=== PATIENT | male | born 1975 | race Caucasian/White ===

== ENCOUNTER 2016-09-07 09:20 | Emergency (ER) | payer OTHER ==
[~2016-09-07] VITALS: Ht 175.3 cm; Wt 77.0 kg
[2016-09-07] MEDS ORDERED: METOCLOPRAMIDE INJ 10MG/2ML VIAL (J2765) IV ONE (10:00)
[2016-09-07] MEDS ORDERED: MORPHINE 4 MG/ML 1ML SYRINGE IV PRN (10:00)
[2016-09-07] MEDS ORDERED: NS 1,000 ML IV ONE (10:30)
[2016-09-07 10:39] LABS: BASO % 0.5 % (0.0-1.0); EOS # 0.1 K/mm3 (0.0-0.50); EOS % 1.2 % (0.0-3.0); LARGE UNSTAINED CELL # 0.1 K/mm3 (0.0-0.4); LYMPH # 1.4 K/mm3 (1.5-4.5); LYMPH % 24.2 % (24.0-44.0); MEAN CORPUSCULAR HEMOGLOBIN 30.6 pg (27.0-33.0); MEAN CORPUSCULAR VOLUME 87.4 fl (80.0-96.0); MONO # 0.4 K/mm3 (0.0-0.8); MONO % 6.6 % (0.0-5.0); NEUTROPHILS # 3.7 K/mm3 (1.8-7.7); NEUTROPHILS % 65.6 % (36.0-66.0); PLATELET COUNT, AUTOMATED 223 k/mm3 (150-450); RED CELL DISTRIBUTION WIDTH 12.5 % (11.5-14.5); WHITE BLOOD COUNT 5.6 K/mm3 (4.0-10.0)
[2016-09-07 10:47] LABS: ALBUMIN 4.4 GM/DL (3.2-5.2); ALBUMIN/GLOBULIN RATIO 1.33 (1.00-1.93); ALKALINE PHOSPHATASE 45 U/L (45-117); ALT/SGPT 28 U/L (12-78); ANION GAP 4 MEQ/L (8-16); AST/SGOT 13 U/L (15-37); BILIRUBIN,DIRECT 0.2 MG/DL (0.0-0.2); BILIRUBIN,TOTAL 0.9 MG/DL (0.2-1.0); BLOOD UREA NITROGEN 19 MG/DL (7-18); CALCIUM LEVEL 9.3 MG/DL (8.5-10.1); CARBON DIOXIDE LEVEL 32 MEQ/L (21-32); CHLORIDE LEVEL 104 MEQ/L (98-107); CREATININE FOR GFR 1.17 MG/DL (0.70-1.30); GLOMERULAR FILTRATION RATE > 60.0 (>60); GLUCOSE, FASTING 92 MG/DL (70-105); POTASSIUM SERUM 4.2 MEQ/L (3.5-5.1); SODIUM LEVEL 140 MEQ/L (136-145); TOTAL PROTEIN 7.7 GM/DL (6.4-8.2)
--- NOTE | 2016-09-07 14:03 | REP ---
CT abdomen pelvis without IV or bowel contrast: There are no comparison studies. The visualized lung العلي are unremarkable except for dependent atelectasis. The unenhanced hepatic parenchyma is homogeneous. The gallbladder, pancreas and spleen are unremarkable. The adrenals and unenhanced kidneys are unremarkable. The abdominal aorta is unremarkable. There is no bowel distension or obstruction. There are surgical karen adjacent to bowel loops in the right lower quadrant. The patient indicates he has had an appendectomy. Pelvis: There is no ascites or adenopathy. There are metallic densities interposed between the posterior wall of the bladder and the seminal vesicles of uncertain significance, possibly from biopsy. Impression: There is no bowel distension or obstruction. There is no ascites, adenopathy or mass. There are surgical clips in the right lower quadrant, likely from the patients known appendectomy. There are metallic densities interposed between the posterior bladder wall and seminal vesicles of uncertain significance, possibly from biopsy. Signed by Ronny Hightower MD 09/07/2016 01:55 P
[2016-09-07 14:33] VITALS: BP 132/82
[2016-09-07] MEDS ORDERED: REGL10TA6 PO (14:40)
[2016-09-07] MEDS ORDERED: CIPR-249 PO (14:42)
[2016-09-07] MEDS ORDERED: NORC1TAB4 PO (14:42)
[2016-09-07] MEDS ORDERED: FLAG500T PO (14:43)
[2016-12-02] MEDS ORDERED: MULTTAB50 PO (07:59)
[2016-12-02] MEDS ORDERED: FLON1SPR (07:59)
== END 2016-09-07 14:53 | disposition home or self-care (01) ==
LOC: M ED 09:20
DX: K52.9 Noninfective gastroenteritis and colitis, unspecified (principal)
CPT/HCPCS: 74176; 80048; 80076; 83690; 85025; 86850; 86900; 86901; 87507; 93041; 96361; 96374; 96375; 99285; J2765

== ENCOUNTER 2016-12-09 07:20 | Day surgery (SDC) | payer OTHER ==
[~2016-12-09] VITALS: Ht 175.3 cm; Wt 72.6 kg
[~2016-12-09 07:20] MED LIST: CIPR-249 PO; FLAG500T PO; FLON1SPR; MULTTAB50 PO; NORC1TAB4 PO; REGL10TA6 PO
[2016-12-09] MEDS ORDERED: NS 1,000 ML IV SCH (07:30)
[2016-12-09] MEDS ORDERED: LIDOCAINE 2% INJ 100 MG/5 ML SDV (FOR ANES.) As Ordered ONE (08:32)
[2016-12-09] MEDS ORDERED: PROPOFOL 200 MG/20 ML VIAL As Ordered ONE ×2 (08:32→08:41)
--- NOTE | 2016-12-09 08:52 | ROOR ---
Patient Name: Farhan Alfaro Procedure Date: 12/09/2016 8:29 AM Date of : 1975 Age: 41 Room: [facility] Gender: Male Note Status: Finalized Procedure: Colonoscopy Indications: Screening in patient at increased risk: Family history of 1st-degree relative with colorectal cancer before age 60 years Providers: DO Pepito Perez MD: ALEXIA MITCHELL MD Requesting Provider: Medicines: Propofol per Anesthesia Complications: No immediate complications. Procedure: Pre-Anesthesia Assessment: - Prior to the procedure, a History and Physical was performed, and patient medications and allergies were reviewed. The patient is competent. The risks and benefits of the procedure and the sedation options and risks were discussed with the patient. All questions were answered and informed consent was obtained. Patient identification and proposed procedure were verified by the physician, the nurse, the anesthesiologist and the [employer] service technician in the endoscopy suite. Mental Status Examination: alert and oriented. Airway Examination: normal oropharyngeal airway and neck mobility. Respiratory Examination: clear to auscultation. CV Examination: normal. Prophylactic Antibiotics: The patient does not require prophylactic antibiotics. Prior Anticoagulants: The patient has taken no previous anticoagulant or antiplatelet agents. ASA Grade Assessment: II - A patient with mild systemic disease. After reviewing the risks and benefits, the patient was deemed in satisfactory condition to undergo the procedure. The anesthesia plan was to use monitored anesthesia care (MAC). Immediately prior to administration of medications, the patient was re-assessed for adequacy to receive sedatives. The heart rate, respiratory rate, oxygen saturations, blood pressure, adequacy of pulmonary ventilation, and response to care were monitored throughout the procedure. The physical status of the patient was re-assessed after the procedure. The Colonoscope was introduced through the anus and advanced to the cecum, identified by the appendiceal orifice, ileocecal valve and palpation. The colonoscopy was performed without difficulty. The patient tolerated the procedure well. Findings: The perianal exam findings include internal hemorrhoids that prolapse with straining, but spontaneously regress to the resting position (Grade II). The exam was otherwise without abnormality on direct and retroflexion views. Impression: - Internal hemorrhoids that prolapse with straining, but spontaneously regress to the resting position (Grade II) found on perianal exam. - The examination was otherwise normal on direct and retroflexion views. - No specimens collected. Recommendation: - Patient has a contact number available for emergencies. The signs and symptoms of potential delayed complications were discussed with the patient. Return to normal activities tomorrow. Written discharge instructions were provided to the patient. - Repeat colonoscopy in 3 - 5 years for screening purposes. - Return to my office PRN. Ronny Grijalva DO 12/09/2016 8:52:32 AM This report has been signed electronically. Number of Addenda: 0 Note Initiated On: 12/09/2016 8:29 AM Estimated Blood Loss: Estimated blood loss: none.
[2016-12-09 09:22] VITALS: BP 112/70
== END 2016-12-09 09:45 | disposition home or self-care (01) ==
LOC: M OPP 07:20 → EDSTATUS 08:30 → M OPP 09:45
PROVIDERS: ATTEND Surgery
DX: K64.1 Second degree hemorrhoids (principal); Z80.0 Family history of malignant neoplasm of digestive organs; R06.83 Snoring; Z88.5 Allergy status to narcotic agent; Z91.041 Radiographic dye allergy status; Z96.9 Presence of functional implant, unspecified

== ENCOUNTER → 2016-12-14 | Outpatient (CLI) | payer OTHER ==
--- NOTE | 2016-12-14 09:31 | REP ---
CT STUDY THORACIC SPINE WITHOUT CONTRAST: HISTORY: Mid to lower back pain. CT FINDINGS: Preliminary digital regulatory lead radiographs are unremarkable. There is a mild dextroconvex upper thoracic curvature. There is a small bone island in the T10 vertebral body. Pedicles and posterior elements are intact. There is no bony destructive lesion or fracture. No paraspinal mass is observed. No evidence of hematoma. Disc spaces are maintained. No thoracic disc herniation is appreciated. Minimal degenerative disc disease is seen at T8-9 and T7-8 anteriorly as well as at T11-12. IMPRESSION: Minimal scoliotic curvature. There is mild degenerative disc disease at T11-12 with some spurring. Minimal spurring is seen at T8-9 and T7-8 anteriorly as well. No other significant finding. Signed by Daniel De Oliveira MD 12/14/2016 12:58 P
== END ==
LOC: M RAD 08:57
PROVIDERS: ATTEND Nurse Practitioner Family
DX: M54.6 Pain in thoracic spine (principal); M41.9 Scoliosis, unspecified; M51.34 Other intervertebral disc degeneration, thoracic region